=== PATIENT | female | born 1945 | race Caucasian/White ===

== ENCOUNTER 2020-03-11 07:49 | Outpatient (CLI) | payer MEDICARE, SELFPAY ==
--- NOTE | ~2020-03-11 | MM_ITS ---
EXAMINATION: MM screening [facility] BI w leonel HISTORY: Screening mammogram TECHNIQUE: Craniocaudal and mediolateral oblique 3-D tomosynthesis images were obtained and synthetic 2-D images were generated. CAD analysis was submitted and interpreted. COMPARISON: Comparison to multiple prior studies sequentially, with oldest reviewed study dated 12/19. BREAST PARENCHYMAL COMPOSITION: There are scattered areas of fibroglandular density. FINDINGS: There is no evidence of suspicious mass, calcification, or architectural distortion to sugg est malignancy in either breast. There has been no suspicious interval change. IMPRESSION: 1. No mammographic evidence of malignancy. 2. Recommend routine screening mammography in one year. BI-RADS Category 1: Negative Reviewed, dictated and finalized at location A.
--- NOTE | ~2020-03-11 | DEXA_ITS ---
Bone Density Report Name: Kassidy Graves Age: 74 Sex: Female Ethnicity: White Date of : 1945 Indication: postmenopausal; parental hip fracture; height loss; hysterectomy; Referring Provider: Samantha Lopez Study: Bone densitometry was performed. Exam Date: March 11, 2020 Accession number: [id number] Bone Density: Region BMD T-score Z-score Classification AP Spine (L1, L2) 0.992 0.1 2.5 Normal Femoral Neck (Left) 0.656 -1.7 0.4 Osteopenia Total Hip (Left) 0.871 -0.6 1.3 Normal Total Hip Bilateral Avg 0.870 -0.6 1.3 Normal Femoral Neck (Right) 0.721 -1.2 1.0 Osteopenia Total Hip (Right) 0.868 -0.6 1.3 Normal World Health Organization criteria for BMD impression classify patients as: Normal (T-score at or above -1.0), Osteopenia (T-score between -1.0 and -2.5), or Osteoporosis (T-score at or below -2.5). 10-year Fracture Risk(1): Major Osteoporotic Fracture 22% Hip Fracture 12% Reported Risk Factors: [place] (), Neck BMD=0.656, BMI=29.3, parental fracture (1) FRAX(R) Version 3.08. Fracture probability calculated for an untreated patient. Fracture probability may be lower if the patient has received treatment. Previous Exams: Region Exam Age BMD T-score BMD Change BMD Change Date g/cm2 vs Baseline vs Previous AP Spine(L1, L2) 03/11/2020 74 0.992 0.1 0.005(0.5%)# -0.039(-3.8%)* 09/26/2016 71 1.031 0.5 0.044(4.4%)# 0.044(4.4%)# 10/18/2011 66 0.987 0.1 Total Hip(Left) 03/11/2020 74 0.871 -0.6 -0.023(-2.6%)# -0.002(-0.2%) 09/26/2016 71 0.873 -0.6 -0.021(-2.4%)# -0.021(-2.4%)# 10/18/2011 66 0.894 -0.4 Total Hip(Right) 03/11/2020 74 0.868 -0.6 -0.035(-3.8%)# -0.009(-1.0%) 09/26/2016 71 0.876 -0.5 -0.026(-2.9%)# -0.026(-2.9%)# 10/18/2011 66 0.902 -0.3 *Denotes significance at 95% confidence level, LSC for AP Spine = 0.022 g/cm2, LSC for Total Hip = 0.027 g/cm2 Clinical Information Provided by Patient: Parent has had a hip fracture Has the following medical conditions: Hysterectomy Patient maximum height was 63 Menopause Age: 38 No regular weight bearing exercise Drinks caffeinated beverages Onset of menses at age 10 Number of children 1 Impression: The patient has low bone mass, based on the Left Femoral Neck T-score. The patient has an estimated ten-year risk of hip fracture of 12% and an estimated ten-year risk of major fracture of 22%, based on the WHO FRAX algo
== END 2020-03-11 07:50 | disposition home or self-care (01) ==
PROVIDERS: PCP Family Medicine; Visit Provider Family Medicine
DX: Z12.31 Encounter for screening mammogram for malignant neoplasm of breast (principal); Z78.0 Asymptomatic menopausal state; M85.852 Other specified disorders of bone density and structure, left thigh; M85.851 Other specified disorders of bone density and structure, right thigh
CPT/HCPCS: 77063; 77067; 77080

== ENCOUNTER → 2020-11-06 01:12 | Outpatient (CLI) | payer MEDICARE, SELFPAY ==
[2020-11-06 20:38] LABS: SARS-CoV-2 RNA PCR Negative
== END ==
PROVIDERS: PCP Physician Assistant; Visit Provider Internal Medicine Gastroenterology
DX: Z01.812 Encounter for preprocedural laboratory examination (principal); Z20.822 Contact with and (suspected) exposure to COVID-19
CPT/HCPCS: C9803; U0003; U0005

== ENCOUNTER 2020-11-09 02:08 | Day surgery (SDC) | payer MEDICARE, SELFPAY ==
[2020-10-26 14:14] VITALS: BMI 27.1
[2020-11-09 09:46] VITALS: BP 104/57; PULSE 56; RESP 18; TEMP 37.4; O2SAT 98
--- NOTE | 2020-11-09 09:53 | WPDANESEPPF ---
Anes - Initial Pre Proc Eval Procedure: Operation Date: 11/09/20 10:30 Proposed Procedures p Screening Colonoscopy - Enoc Rodrigues MD Date/Time: 11/09/20 09:53 Surgeon: Enoc Rodrigues MD Pre Op Diagnosis: Neoplasm Screening Patient Data Age: 75 Gender: F Height: 5 ft 2 in Weight: 65.7 kg Last Vital Signs Temp 37.4 C 11/09/20 09:46 Pulse 56 L 11/09/20 09:46 Resp 18 11/09/20 09:46 BP 104/57 L 11/09/20 09:46 Pulse Ox 98 11/09/20 09:46 Allergies Allergy/AdvReac Type Severity Reaction Status Date / Time Penicillins Allergy Unknown Unknown Verified 11/09/20 09:27 Home Medications Medication Instructions Recorded Confirmed Type propylene glycol 0.6 % eye drops 1 drop EACH EYE BID-TID PRN #10 ml 02/20/20 10/25/20 Rx diclofenac sodium 75 mg 75 mg PO BID PRN 07/29/20 10/25/20 History tablet,delayed release donepezil 10 mg tablet 10 mg PO ONCE 07/29/20 10/25/20 History simvastatin 10 mg tablet See Rx Instructions .ROUTE 08/30/20 10/25/20 Rx .COMPLEX #90 tablet cholecalciferol (vitamin D3) 25 25 mcg PO DAILY 10/20/20 10/25/20 History mcg (1,000 unit) capsule hydrocortisone 2.5 % topical cream 1 applic [place] BID #30 g 10/20/20 10/25/20 Rx with perineal applicator melatonin 5 mg capsule mg PO DAILY cap 10/20/20 10/25/20 History levothyroxine 50 mcg tablet 50 mcg PO DAILY #90 tablet 10/25/20 Rx sodium,potassium,mag sulfates 17.5 See Rx Instructions PO .COMPLEX 10/25/20 Rx gram-3.13 gram-1.6 gram oral soln #354 ml oxybutynin chloride 5 mg tablet 5 mg PO DAILY #90 tablet 10/27/20 10/27/20 Rx memantine 10 mg tablet 10 mg PO BID #30 tablet 11/08/20 Rx sertraline 100 mg tablet 100 mg PO DAILY #90 tablet 11/08/20 Rx Patient hx anesthesia problems: none Family hx anesthesia problems: none PMFSH Past Medical History Medical History Alzheimer disease 2020 Broken arm MITCH (generalized anxiety disorder) History of blood transfusion Hyperlipidemia Hypothyroidism determined by thyroid function test Memory deficit Migraine Post-menopausal Surgical History Surgical History H/O hysterectomy for benign disease History of appendectomy History of cataract surgery History of tonsillectomy [place] teeth removed Family History Family History Mother Family history of Alzheimer's disease Other Cerebrovascular accident Social History Social History Smoking status: Never smoker Second hand tobacco smoke exposure: No Alcohol intake: current Alcohol use details: rarely Substance use: never Substance use type: does not use Living arrangements: alone Gender identity (if verbalized by the patient): Female Spiritual care concerns: No Agree to blood products: Yes Anes - Eval Final PreProcedure Day of Procedure 11/09/20 09:53 Patient weight: normal Heart: regular rate and rhythm Lungs: clear to auscultation Airway: Mallampati scale class 1 Neurological: alert and oriented Last oral intake: >/= 8 hours ASA classification: III Emergent: no Anesthetic plan: proceed Anesthesia type and monitoring: general GIVS and standard monitoring Informed Consent: The patient's anesthetic plan and its attendant risks and benefits were discussed with the patient/family/POA. Questions were solicited and answers provided to the satisfaction of the patient/family/POA.
[2020-11-09] MEDS: LACTATED RINGERS 1,000 ML 150 ML IV CONT (10:00)
[2020-11-09 11:00] VITALS: BP 103/61; PULSE 48; RESP 17; O2SAT 97
--- NOTE | 2020-11-09 11:13 | PM.HPGS ---
History of Present Illness History of Present Illness Consent: Risks, benefits, and alternatives have been discussed and questions answered. Patient agrees to proceed with procedure. Chief complaint: Neoplasm Screening Narrative: Kassidy Graves is a 75 year old female here for colon screening, last one 2009, also hemorrhoids for which has seen surgery Review of Systems Constitutional: Constitutional: Denies headache(s) and Denies weakness Eyes: Eyes: Denies blurry vision ENT: Reports Normal hearing present, Denies headache(s) and Denies neck pain Cardiovascular: Cardiovascular: Denies chest pain and Denies dyspnea Respiratory: Respiratory: Denies dyspnea Gastrointestinal: Gastrointestinal: Reports no additional gastrointestinal complaints Genitourinary: Genitourinary: Denies dysuria Musculoskeletal: Musculoskeletal: Denies neck pain Integumentary/Breasts: Skin/Breast: Denies dry skin Neurologic: Reports Normal hearing present, Denies headache(s) and Denies weakness Psychiatric: Psychiatric: Denies anxiety Endocrine: Endocrine: Denies change in body appearance Hematologic/Lymphatic: Hematologic/Lymphatic: Denies easy bleeding Allergic/Immunologic: Allergic/Immunologic: Denies urticaria PMFSH Past Medical History Medical History Alzheimer disease 2020 Broken arm MITCH (generalized anxiety disorder) History of blood transfusion Hyperlipidemia Hypothyroidism determined by thyroid function test Memory deficit Migraine Post-menopausal Surgical History Surgical History H/O hysterectomy for benign disease History of appendectomy History of cataract surgery History of tonsillectomy [place] teeth removed Family History Family History Mother Family history of Alzheimer's disease Other Cerebrovascular accident Social History Social History Smoking status: Never smoker Second hand tobacco smoke exposure: No Alcohol intake: current Alcohol use details: rarely Substance use: never Substance use type: does not use Living arrangements: alone Gender identity (if verbalized by the patient): Female Spiritual care concerns: No Agree to blood products: Yes Meds Home Medications and Allergies Home Medications Medication Instructions Recorded Confirmed Type propylene glycol 0.6 % eye drops 1 drop EACH EYE BID-TID PRN #10 ml 02/20/20 11/09/20 Rx diclofenac sodium 75 mg 75 mg PO BID PRN 07/29/20 10/25/20 History tablet,delayed release donepezil 10 mg tablet 10 mg PO ONCE 07/29/20 11/09/20 History simvastatin 10 mg tablet See Rx Instructions .ROUTE 08/30/20 11/09/20 Rx .COMPLEX #90 tablet cholecalciferol (vitamin D3) 25 25 mcg PO DAILY 10/20/20 11/09/20 History mcg (1,000 unit) capsule hydrocortisone 2.5 % topical cream 1 applic [place] BID #30 g 10/20/20 11/09/20 Rx with perineal applicator melatonin 5 mg capsule mg PO DAILY cap 10/20/20 10/25/20 History levothyroxine 50 mcg tablet 50 mcg PO DAILY #90 tablet 10/25/20 11/09/20 Rx sodium,potassium,mag sulfates 17.5 See Rx Instructions PO .COMPLEX 10/25/20 11/09/20 Rx gram-3.13 gram-1.6 gram oral soln #354 ml oxybutynin chloride 5 mg tablet 5 mg PO DAILY #90 tablet 10/27/20 11/09/20 Rx memantine 10 mg tablet 10 mg PO BID #30 tablet 11/08/20 11/09/20 Rx sertraline 100 mg tablet 100 mg PO DAILY #90 tablet 11/08/20 11/09/20 Rx Allergies Allergy/AdvReac Type Severity Reaction Status Date / Time Penicillins Allergy Unknown Unknown Verified 11/09/20 09:27 Vital Signs Vital Signs - 24 hr 11/09/20 09:46 Temperature 99.3 F Pulse Rate 56 L Respiratory Rate 18 Blood Pressure 104/57 L Pulse Oximetry 98 Exam Const: General: comfortable and no acute distress HENMT: General nose exam: Normal nares p
[2020-11-09 11:30] VITALS: BP 103/61; PULSE 48; RESP 17; O2SAT 97
[2020-11-09 11:40] VITALS: BP 108/66; PULSE 47; RESP 20; O2SAT 98
[2020-11-09 11:50] VITALS: BP 113/68; PULSE 54; RESP 18; O2SAT 99
[2020-11-09 12:00] VITALS: BP 110/56; PULSE 67; RESP 18; O2SAT 99
== END 2020-11-09 12:19 | disposition home or self-care (01) ==
PROVIDERS: PCP Physician Assistant; Visit Provider Internal Medicine Gastroenterology
PROC: 0DJD8ZZ Inspection of Lower Intestinal Tract, Via Natural or Artificial Opening Endoscopic (ICD-10-PCS; CPT 45378; principal; 2020-11-09 10:30)
DX: Z12.11 Encounter for screening for malignant neoplasm of colon (principal); D12.2 Benign neoplasm of ascending colon; G30.9 Alzheimer's disease, unspecified; K64.4 Residual hemorrhoidal skin tags; E78.5 Hyperlipidemia, unspecified; E03.9 Hypothyroidism, unspecified; F02.80 Dementia in other diseases classified elsewhere, unspecified severity, without behavioral disturbance, psychotic disturbance, mood disturbance, and anxiety; Z90.710 Acquired absence of both cervix and uterus
CPT/HCPCS: 45385; 88305; C9803; J2704; J7120; U0003; U0005

== ENCOUNTER 2020-11-11 08:13 | Outpatient (CLI) | payer MEDICARE, SELFPAY ==
--- NOTE | 2020-11-11 08:16 | ECG_ITS ---
Measurements Intervals [place] Rate: 55 P: 68 TX: 168 QRS: -15 QRSD: 90 T: 61 QT: 429 QTc: 411 Interpretive Statements SINUS BRADYCARDIA INCOMPLETE RIGHT BUNDLE BRANCH BLOCK BASELINE ARTIFACT- I, II, III, AVR, AVL,A VF BORDERLINE ECG Electronically Signed On 11-11-2020 9:22:32 DEPARTMENT SALES MANAGER by Mayur Weinberg D.O.
== END 2020-11-11 08:14 | disposition home or self-care (01) ==
LOC: ANHSURGERY 08:16
PROVIDERS: PCP Physician Assistant; Visit Provider Surgery
DX: E78.5 Hyperlipidemia, unspecified (principal); Z01.818 Encounter for other preprocedural examination; I45.10 Unspecified right bundle-branch block
CPT/HCPCS: 93005

== ENCOUNTER → 2020-11-13 01:03 | Outpatient (CLI) | payer MEDICARE, SELFPAY ==
[2020-11-13 19:49] LABS: SARS-CoV-2 RNA PCR Negative
== END ==
PROVIDERS: PCP Physician Assistant; Visit Provider Surgery
DX: Z01.812 Encounter for preprocedural laboratory examination (principal); Z20.822 Contact with and (suspected) exposure to COVID-19
CPT/HCPCS: C9803; U0003; U0005

== ENCOUNTER 2020-11-17 01:05 | Day surgery (SDC) | payer MEDICARE, SELFPAY ==
[2020-11-09 14:42] VITALS: BMI 26.6
[2020-11-17] MEDS: LACTATED RINGERS 1,000 ML 30 ML IV CONT (08:28)
[2020-11-17] MEDS: ACETAMINOPHEN 500 MG TABLET 1000 MG PO (08:29)
[2020-11-17] MEDS: KETOROLAC 15 MG/ML VIAL (*BKC) IV PUSH (08:29)
[2020-11-17 09:21] VITALS: BP 115/66; PULSE 71; RESP 16; TEMP 36.6; O2SAT 98
--- NOTE | 2020-11-17 09:56 | WPDANESEPPF ---
Anes - Initial Pre Proc Eval Procedure: Operation Date: 11/17/20 10:00 Proposed Procedures p Proctosigmoidoscopy With Hemorrhoidectomy (Two Complexes) - Usman Hay MD Date/Time: 11/17/20 09:56 Surgeon: Usman Hay MD Pre Op Diagnosis: Internal and External Hemorrhoid w/ Complications Patient Data Age: 75 Gender: F Height: 5 ft 2 in Weight: 64.9 kg Last Vital Signs Temp 98 F 11/17/20 09:21 Pulse 71 11/17/20 09:21 Resp 16 11/17/20 09:21 BP 115/66 11/17/20 09:21 Pulse Ox 98 11/17/20 09:21 Allergies Allergy/AdvReac Type Severity Reaction Status Date / Time Penicillins Allergy Severe Swelling Verified 11/17/20 08:00 of Lip/Tongue/Throat Home Medications Medication Instructions Recorded Confirmed Type propylene glycol 0.6 % eye drops 1 drop EACH EYE BID-TID PRN #10 ml 02/20/20 11/17/20 Rx diclofenac sodium 75 mg 75 mg PO BID PRN 07/29/20 11/09/20 History tablet,delayed release donepezil 10 mg tablet 10 mg PO ONCE 07/29/20 11/17/20 History cholecalciferol (vitamin D3) 25 25 mcg PO DAILY 10/20/20 11/17/20 History mcg (1,000 unit) capsule melatonin 5 mg capsule 5 mg PO HS cap 10/20/20 11/17/20 History oxybutynin chloride 5 mg tablet 5 mg PO DAILY #90 tablet 10/27/20 11/17/20 Rx memantine 10 mg tablet 10 mg PO BID #30 tablet 11/08/20 11/17/20 Rx ascorbic acid (vitamin C) 500 mg PO DAILY 11/09/20 11/17/20 History hydrocortisone [Anusol-HC] 1 applic [place] BID PRN 11/09/20 11/17/20 History levothyroxine 50 mcg PO QAM 11/09/20 11/17/20 History psyllium husk [Metamucil] 1 tbsp PO BID 11/09/20 11/17/20 History sertraline 100 mg PO QAM 11/09/20 11/17/20 History simvastatin 10 mg PO HS 11/09/20 11/17/20 History Patient hx anesthesia problems: none Family hx anesthesia problems: none PMFSH Past Medical History Medical History Alzheimer disease 2020 Broken arm MITCH (generalized anxiety disorder) History of blood transfusion Hyperlipidemia Hypothyroidism determined by thyroid function test Memory deficit Migraine Post-menopausal Surgical History Surgical History H/O hysterectomy for benign disease History of appendectomy History of cataract surgery History of tonsillectomy [place] teeth removed Family History Family History Mother Family history of Alzheimer's disease Other Cerebrovascular accident Social History Social History Smoking status: Never smoker Second hand tobacco smoke exposure: No Alcohol intake: former Alcohol use details: RARELY DRANK ALCOHOL IN PAST Substance use: never Substance use type: does not use Living arrangements: alone Gender identity (if verbalized by the patient): Female Spiritual care concerns: No Agree to blood products: Yes Anes - Eval Final PreProcedure Day of Procedure 11/17/20 09:56 Patient weight: overweight Heart: regular rate and rhythm Lungs: clear to auscultation Airway: Mallampati scale class II Neurological: alert and oriented Last oral intake: >/= 8 hours ASA classification: III Emergent: no Anesthetic plan: proceed Anesthesia type and monitoring: general GIVS and standard monitoring Informed Consent: The patient's anesthetic plan and its attendant risks and benefits were discussed with the patient/family/POA. Questions were solicited and answers provided to the satisfaction of the patient/family/POA.
--- NOTE | 2020-11-17 10:50 | SUR.PREOP ---
Sitting on side of stretcher with no complaints or needs.
--- NOTE | 2020-11-17 10:51 | WPDHPUPDATE1 ---
History and Physical Update Update Date/Time: 11/17/20 10:51 History and Physical has been reviewed, including an updated exam of the patient. There are NO changes in the patient's condition. Risks, benefits, and alternatives have been discussed and questions answered. Patient agrees to proceed with procedure.
[2020-11-17] MEDS: ceFAZolin 2 GM/D5W 50 ML 2 GM/50 ML BAG IVPB (11:05)
[2020-11-17] MEDS: BUPIVACAINE HCL 0.5% PF 30 ML VIAL 10 ML INFILTRATE (11:21)
[2020-11-17 12:04] VITALS: BP 96/58; PULSE 53; RESP 16; O2SAT 97
--- NOTE | 2020-11-17 12:05 | PM.PROC ---
Procedure Note - Detailed Date of procedure: 11/17/20 Pre-op diagnosis: Internal and External Hemorrhoid w/ Complications Prolapsed, bleeding, internal and external hemorrhoids Post-op diagnosis: same Procedure performed: Proctosigmoidoscopy to 15 cm, excision 2 complexes internal and external hemorrhoids Description of procedure: The patient was taken to surgery and IV sedation was administered. She was then turned to prone jacquie-knife position. The buttocks were taped apart. Prep and drape was carried out. Local anesthesia was infiltrated 20 cc deep subdermal and 20 cc intra sphincteric. We then proceeded with proctosigmoidoscopy. This was able to be carried out to 15 cm. No rectal lesions were noted. I then placed a medium Hill-Garcia anoscope. Our attention was taken 1st to the largest hemorrhoid which was in the left lateral position. This internal and external hemorrhoid was then excised primarily with the cautery. It was sent to pathology labeled appropriately. The wound was closed with running locking 4 0 chromic suture. This appeared quite hemostatic and satisfactory. I then went to the patient's right side. Similarly, we placed the medium Hill-Garcia anoscope. A right anterior large complex was attended. It was excised in similar fashion excising both the internal and external hemorrhoid. This wound was also closed with running locking 4 0 chromic suture. I checked for any additional anal canal pathology. There was none. The suture lines were intact and hemostatic. The wound was dressed with Xeroform gauze fluffs and promise panties. The patient was returned to a supine position. She was awakened and taken to outpatient surgery in good condition. Estimated blood loss 30 cc. Sponge and needle counts were correct x2. Anesthesia: MAC and local (0.5% Marcaine with Exparel) Surgeon: Usman Hay MD Stevedore Dock: Cristine RICH Estimated blood loss (mL): 30 Drains: No Packing: No Pathology: yes (Left lateral complex of internal and external hemorrhoids, right anterior complex internal and external hemorrhoids) Complications: None Condition: stable Disposition: same day Findings: Large prolapsed internal and external hemorrhoids at the left lateral and right anterior locations. Proctosigmoidoscopy to 15 cm was negative.
[2020-11-17 12:34] VITALS: BP 108/59; PULSE 51; RESP 16
[2020-11-17 12:57] VITALS: BP 117/54; PULSE 55; RESP 16
== END 2020-11-17 13:10 | disposition home or self-care (01) ==
PROVIDERS: PCP Physician Assistant; Visit Provider Surgery
PROC: (CPT 46260; principal; 2020-11-17 10:00)
DX: K64.8 Other hemorrhoids (principal); K64.4 Residual hemorrhoidal skin tags; K64.5 Perianal venous thrombosis; K62.89 Other specified diseases of anus and rectum; G30.9 Alzheimer's disease, unspecified; F02.80 Dementia in other diseases classified elsewhere, unspecified severity, without behavioral disturbance, psychotic disturbance, mood disturbance, and anxiety; E78.5 Hyperlipidemia, unspecified; E03.9 Hypothyroidism, unspecified; F41.1 Generalized anxiety disorder
CPT/HCPCS: 46260; 88304; 93005; A9270; C9290; C9803; J0690; J1885; J2405; J2704; J3010; J7120; U0003; U0005

== ENCOUNTER 2020-11-18 08:48 | Emergency (ER) | payer MEDICARE, SELFPAY ==
--- NOTE | ~2020-11-18 | CT_ITS ---
EXAMINATION: CT abdomen pelvis w con DATE: 11/18/2020 09:41 INDICATION: Postoperative pelvic pain TECHNIQUE: Computed tomography (CT) of the abdomen and pelvis was performed with 100 cc Omnipaque 350 intravenous contrast. Automated exposure control and iterative reconstruction technique were employe d. Exam dose: 359.29 mGy-cm total exam DLP. COMPARISON: None. FINDINGS: The lung bases are clear of consolidation. Normal heart size. No pericardial or pleural eff usion. There are 2 probable up to 5 mm left hepatic lobe cysts. Focal areas of fatty infiltration near the g allbladder and the fissure for the ligamentum teres. The gallbladder is present. No gallbladder wall thickening or pericholecystic fluid or fat stranding. No bile duct dilatation. No pancreatic mass lesion or calcification. The pancreatic duct measures up to 3.8 mm diameter. Normal splenic size. Normal morphology of the adrenal glands. No renal mass lesion, scarring or urinary tract calculus or hydroureteronephrosis. Normal caliber of the abdominal aorta. No intraperitoneal or retroperitoneal or pelvic mass lesion or adenopathy or ascites. Status post hysterectomy. The urinary bladder is unremarkable. Mild diverticulosis of the left colon; no CT evidence of diverticulitis. No bowel obstruction, bowel wall thickening, pneumatosis or intraperitoneal free air is detected. There is severe degenerative disc disease at L2-3 through L4-5 with associated mild retrolisthesis at L2-3, L3-4. IMPRESSION: Status post hysterectomy Small hepatic cysts Mild diverticulosis of the colon Reviewed, dictated and finalized at Location A. Reviewed, dictated and finalized at location B. [employer]ER[employer]
[2020-11-18 08:59] VITALS: BP 112/60; PULSE 61; RESP 18; TEMP 36.8; O2SAT 100
--- NOTE | 2020-11-18 09:01 | ED.FEMALEGU ---
HPI - Female Genitourinary General Chief complaint: Urogenital-Female Stated complaint: post op pain,unable to void-hemorrhoidectomy yest Time Seen by Provider: 11/18/20 09:00 Source: patient Mode of arrival: wheelchair Limitations: no limitations History of Present Illness HPI Narrative: A 75-year-old female comes into the emergency department with complaints of pain in the inability to urinate. Patient states she recently underwent a hemorrhoidectomy. Patient states that she thinks she urinated last night. She notes that she woke up around 430 this morning was unable to urinate then and was still unable to urinate. She states because of this she has come in now. Patient states that she did take an OxyContin for her pain as prescribed by her surgeon. Related Data Home Medications Medication Instructions Recorded Confirmed diclofenac sodium 75 mg 75 mg PO BID PRN 07/29/20 11/09/20 tablet,delayed release donepezil 10 mg tablet 10 mg PO ONCE 07/29/20 11/17/20 cholecalciferol (vitamin D3) 25 25 mcg PO DAILY 10/20/20 11/17/20 mcg (1,000 unit) capsule melatonin 5 mg capsule 5 mg PO HS cap 10/20/20 11/17/20 Metamucil 1 tbsp PO BID 11/09/20 11/17/20 ascorbic acid (vitamin C) 500 mg PO DAILY 11/09/20 11/17/20 levothyroxine 50 mcg PO QAM 11/09/20 11/17/20 sertraline 100 mg PO QAM 11/09/20 11/17/20 simvastatin 10 mg PO HS 11/09/20 11/17/20 Allergies Allergy/AdvReac Type Severity Reaction Status Date / Time Penicillins Allergy Severe Swelling Verified 11/17/20 08:00 of Lip/Tongue/Throat Review of Systems Review of Systems: Narrative: CONSTITUTIONAL: Denies fever, chills, or sweats. EYES: Denies visual changes, redness, or discharge. ENT: Denies rhinorrhea, congestion, sore throat, or otalgia. CARDIOVASCULAR: Denies chest pain, palpitations, or edema. RESPIRATORY: Denies cough or dyspnea. GASTROINTESTINAL: Denies abdominal pain, nausea, vomiting, or diarrhea. GENITOURINARY: Denies dysuria or hematuria. Endorses anuria SKIN: Denies rash or itching. MUSCULOSKELETAL: Denies back pain, joint pain, or myalgia. NEUROLOGIC: Denies headache, numbness, dizziness, or weakness. PSYCHIATRIC: Denies anxiety or depression. [facility] Past Medical History Medical History Alzheimer disease 2020 Broken arm MITCH (generalized anxiety disorder) History of blood transfusion Hyperlipidemia Hypothyroidism determined by thyroid function test Memory deficit Migraine Post-menopausal Surgical History Surgical History H/O hysterectomy for benign disease History of appendectomy History of cataract surgery History of tonsillectomy [place] teeth removed Family History Family History Mother Family history of Alzheimer's disease Other Cerebrovascular accident Social History Social History Smoking status: Never smoker Second hand tobacco smoke exposure: No Alcohol intake: former Substance use: never Substance use type: does not use Gender identity (if verbalized by the patient): Female Spiritual care concerns: No Agree to blood products: Yes Exam Narrative: Exam Narrative: GENERAL: Well-appearing, well-nourished, and in no acute distress. HEAD: Normocephalic, atraumatic. EYES: PERRLA and EOMI. ENT: Nares clear, no rhinorrhea or epistaxis. Mucous membranes moist. NECK: Supple. No adenopathy or masses. No carotid bruits or JVD CHEST: Clear to auscultation. No respiratory distress. No wheezes rales or rhonchi HEART: Regular rate and rhythm. No murmur heard. Normal peripheral pulses. ABDOMEN: Soft, nontender, nondistended, normal active bowel sounds. TTP over the suprapubic area EXTREMITIES: Normal range of motion. No edema. SKIN: Warm, dry, no rash. NEURO: No focal deficits. Alert and oriented x3.
[2020-11-18 09:16] LABS: Basophils Percent Auto 0.2 % (0.2-1.2); Eosinophils Percent Auto 0.2 % (0-4.4); Hematocrit 33.4 % (37.0-47.0); Hemoglobin 11.1 g/dL (12.0-15.0); Immature Granulocyte Absolute 0.04 K/mm3 (0.00-0.031); Immature Granulocyte Percent A 0.3 % (0-0.5); Lymphocytes Absolute Auto 0.97 K/mm3 (0.9-3.2); Lymphocytes Percent Auto 7.4 % (18.3-44.2); Mean Corpuscular HGB Conc 33.2 g/dl (32-36); Mean Corpuscular Hemoglobin 30.8 pg (26-34); Mean Corpuscular Volume 92.8 fl (80-100); Mean Platelet Volume 9.5 fl (7.4-10.4); Monocytes Absolute Auto 0.9 K/mm3 (0.1-0.6); Monocytes Percent Auto 6.5 % (2.6-8.5); Neutrophils Absolute Auto 11.1 K/mm3 (1.3-6.7); Neutrophils Percent Auto 85.4 % (45.5-73.1); Platelet Count Result 206 k/mm3 (150-375)
[2020-11-18 09:28] LABS: Alanine Aminotransferase 15 U/L (4-35); Albumin Level 3.6 g/dL (3.5-5.1); Alkaline Phosphatase 68 U/L (38-126); Anion Gap 5 mmol/L (8-16); Aspartate Amino Transferase 26 U/L (14-36); Bilirubin,Total 0.8 mg/dL (0.2-1.3); Blood Urea Nitrogen 13 mg/dL (7-17); Calcium 8.2 mg/dL (8.4-10.2); Carbon Dioxide 25 mmol/L (22-30); Chloride 104 mmol/L (98-107); Estimated CRCL calculation 53 ml/min; Estimated Glomerular Filt Rate > 60; Glucose 114 mg/dL (65-105); Potassium 3.9 mmol/L (3.4-5.0); Sodium 134 mmol/L (137-145)
[2020-11-18 11:01] LABS: Add Urine Microscopic? YES; Appearance Urine Clear (Clear); Bilirubin Urine Negative (Negative); Blood Urine Negative (Negative); Color Urine Colorless (Yellow); Glucose Urine UA Negative (Negative); Ketones Urine Negative (Negative); Leukocyte Esterase Ur Trace LEU/UL (Negative); Nitrate Urine Negative (Negative); Protein Urine Negative (Negative); RBC Urine 0-2 /hpf (0-2); Specific Grav Ur 1.021 (1.001-1.035); Squamous Epithelial Cell Urine Rare /hpf (Few); Urobilinogen Urine Negative mg/dL (<2.0)
--- NOTE | 2020-11-18 11:15 | PC.NURSE ---
Patient requested a balderrama cath at this time, this RN explained to patient that she did not need a balderrama due to patient urinating without difficulty in the bathroom. Patient asked why she cant have one, this RN explained the risk for infection and patient was ok with not getting a balderrama at this time. patient has no questions or concerns.
[2020-11-18] MEDS: HYDROcodone/acetaminophen (*CRX) 7.5-325 MG TABLET 1 TAB PO (11:40)
--- NOTE | 2020-11-18 11:40 | PC.NURSE ---
Patient walked to bathroom without difficulty and in no distress, patient requested discharge paperwork after EDP explained test results and follow up.
--- NOTE | 2020-11-18 11:50 | PC.NURSE ---
This RN at bedside for discharge of patient, patient states I dont know anything more than when I got here and I am not happy. EDP at bedside to talk with patient again, patient states I dont have any questions for you.
--- NOTE | 2020-11-18 12:04 | PC.NURSE ---
Patient discharged at this time, patient has no questions or concerns for the EDP ion exchange operator. Patient states She is just not happy right now and wants to go home, she understands her follow up.
[2020-11-18 12:13] VITALS: BP 118/75; PULSE 66; RESP 19; O2SAT 100
== END 2020-11-18 12:14 | disposition home or self-care (01) ==
PROVIDERS: Emergency Provider Emergency Medicine; PCP Physician Assistant
DX: G89.18 Other acute postprocedural pain (principal); R34 Anuria and oliguria; G30.9 Alzheimer's disease, unspecified; F02.80 Dementia in other diseases classified elsewhere, unspecified severity, without behavioral disturbance, psychotic disturbance, mood disturbance, and anxiety; F41.9 Anxiety disorder, unspecified; E78.5 Hyperlipidemia, unspecified; E03.9 Hypothyroidism, unspecified
CPT/HCPCS: 36415; 74177; 80053; 81001; 85025; 87086; 99284; A9270; Q9967

== ENCOUNTER 2021-05-06 08:57 | Outpatient (CLI) | payer MEDICARE, SELFPAY ==
--- NOTE | ~2021-05-06 | MM_ITS ---
EXAMINATION: MM screening [facility] BI w leonel HISTORY: Screening TECHNIQUE: Craniocaudal and mediolateral oblique 3-D tomosynthesis images were obtained and synthetic 2-D images were generated. CAD analysis was submitted and interpreted. COMPARISON: Comparison to multiple prior studies sequentially, with oldest reviewed study dated 12/19. BREAST PARENCHYMAL COMPOSITION: There are scattered areas of fibroglandular density. FINDINGS: There is no evidence of suspicious mass, calcification, or architectural distortion to sugg est malignancy in either breast. There has been no suspicious interval change. IMPRESSION: 1. No mammographic evidence of malignancy. 2. Recommend routine screening mammography in one year. BI-RADS Category 1: Negative Reviewed, dictated and finalized at location A.
== END 2021-05-06 08:58 | disposition home or self-care (01) ==
PROVIDERS: PCP Family Medicine; Visit Provider Family Medicine
DX: Z12.31 Encounter for screening mammogram for malignant neoplasm of breast (principal)
CPT/HCPCS: 77063; 77067

== ENCOUNTER → 2021-06-07 09:09 | Outpatient (CLI) | payer MEDICARE, SELFPAY ==
[2021-06-07 19:52] LABS: SARS-CoV-2 RNA PCR Negative
== END ==
PROVIDERS: PCP Family Medicine; Visit Provider Family Medicine
DX: R05 Cough (principal); Z20.822 Contact with and (suspected) exposure to COVID-19
CPT/HCPCS: C9803; U0003; U0005

== ENCOUNTER 2021-08-12 13:28 | Emergency (ER) | payer MEDICARE, SELFPAY ==
--- NOTE | ~2021-08-12 | XR_ITS ---
EXAMINATION: XR ankle LT min 3V DATE: 08/12/2021 13:49 INDICATION: Left ankle pain, initial encounter TECHNIQUE: Anteroposterior, lateral, mortise, and additional oblique view of the ankle were obtained. COMPARISON: None. FINDINGS: There is an acute, traumatic, closed, oblique fracture of the distal fibula which ends at t he level of the tibial plafond. There is approximately one cortical width of lateral displacement of the distal fracture fragment. Alignment at the tibiotalar joint is normal. Ankle soft tissue swelling is present. No additional acute osseous findings are evident. There is a plantar calcaneal enthesoph yte. IMPRESSION: 1. Oblique shaft fracture of the distal fibula. Reviewed, dictated and finalized at location B. ROOM SUPERVISOR
--- NOTE | 2021-08-12 13:32 | ED.LOWEXIN ---
HPI - Extremity Injury (Lower) General Chief Complaint: Extremity Injury, Lower Stated Complaint: INJURED L ANKLE Time Seen by Provider: 08/12/21 13:32 Source: patient, family and RN notes reviewed History of Present Illness HPI Narrative: Patient is a 76-year-old female who presents the urgent care with her daughter with complaints of a left ankle injury. Patient states that earlier this morning she was in the garden outside and twisted on some landscaping rocks. Patient states that she heard a pop . Patient has iced and elevated the foot. Patient states that pain increases with any weightbearing or flexion of the ankle. No other acute complaints or injuries. No acute distress noted. Patient and daughter aware of the plan of care. Some parts of this dictation were generated by voice recognition software and may contain typographical and/or grammatical inaccuracies. Related Data Home Medications Medication Instructions Recorded Confirmed diclofenac sodium 75 mg 75 mg PO BID PRN 07/29/20 03/07/21 tablet,delayed release donepezil 10 mg tablet 10 mg PO ONCE 07/29/20 03/07/21 cholecalciferol (vitamin D3) 25 25 mcg PO DAILY 10/20/20 03/07/21 mcg (1,000 unit) capsule melatonin 5 mg capsule 5 mg PO HS cap 10/20/20 03/07/21 Metamucil 1 tbsp PO BID 11/09/20 03/07/21 ascorbic acid (vitamin C) 500 mg PO DAILY 11/09/20 03/07/21 ibuprofen 800 mg tablet 800 mg PO Q6H 01/10/21 03/07/21 Allergies Allergy/AdvReac Type Severity Reaction Status Date / Time Penicillins Allergy Severe Swelling Verified 04/08/21 15:23 of Lip/Tongue/Throat Review of Systems Review of Systems: CONSTITUTIONAL: Denies fever, chills, or sweats. EYES: Denies visual changes, redness, or discharge. ENT: Denies rhinorrhea, congestion, sore throat, or otalgia. CARDIOVASCULAR: Denies chest pain, palpitations, or edema. RESPIRATORY: Denies cough or dyspnea. GASTROINTESTINAL: Denies abdominal pain, nausea, vomiting, or diarrhea. GENITOURINARY: Denies dysuria or hematuria. SKIN: Denies rash or itching. MUSCULOSKELETAL: Reports of left ankle pain, bruising and swelling NEUROLOGIC: Denies headache, numbness, or weakness. All other systems reviewed are negative, except as documented in HPI. [facility] Past Medical History Medical History (Updated 08/12/21 @ 14:10 by CHELY Kan) Alzheimer disease 2020 Breast cancer screening by mammogram mammogram 05/06/2021 normal, recheck in 1 year Broken arm MITCH (generalized anxiety disorder) History of blood transfusion Hyperlipidemia Hypothyroidism determined by thyroid function test Memory deficit Migraine Post-menopausal Surgical History Surgical History H/O hysterectomy for benign disease H/O sigmoidoscopy Proctosigmoidoscopy to 15 cm, excision 2 complexes internal and external hemorrhoids History of appendectomy History of cataract surgery History of tonsillectomy [place] teeth removed Family History Family History Mother Family history of Alzheimer's disease Other Cerebrovascular accident Social History Social History Second hand tobacco smoke exposure: No Alcohol intake: former Alcohol use details: RARELY DRANK ALCOHOL IN PAST Substance use: never Substance use type: does not use Gender identity (if verbalized by the patient): Female Spiritual care concerns: No Agree to blood products: Yes Comments At the time of my signature, I reviewed and agree with the nursing past medical, surgical, social, and family history. There is no relevant family history pertinent to the patient complaint. Exam Narrative: GENERAL: This is a well-nourished, well-developed patient, in no apparent distress. HEAD: normocephalic, atraumatic. EYES: PERRL. Sclera clear/white. Vision is grossly in
[2021-08-12 13:38] VITALS: BP 97/80; PULSE 98; RESP 18; TEMP 37.1; O2SAT 98
== END 2021-08-12 14:33 | disposition home or self-care (01) ==
PROVIDERS: Emergency Provider Nurse Practitioner Family
DX: S82.832A Other fracture of upper and lower end of left fibula, initial encounter for closed fracture (principal); X50.9XXA Other and unspecified overexertion or strenuous movements or postures, initial encounter; G30.9 Alzheimer's disease, unspecified; F02.80 Dementia in other diseases classified elsewhere, unspecified severity, without behavioral disturbance, psychotic disturbance, mood disturbance, and anxiety; E78.5 Hyperlipidemia, unspecified; E03.9 Hypothyroidism, unspecified
CPT/HCPCS: 29515; 73610; 99214; G0463

== ENCOUNTER 2024-03-28 12:41 | Outpatient (CLI) | payer MEDICARE, SELFPAY ==
[2024-03-28 13:16] LABS: Basophils Percent Auto 0.5 % (0.2-1.2); Eosinophils Absolute Auto 0.1 K/mm3 (0-0.3); Eosinophils Percent Auto 0.9 % (0-4.4); Hematocrit 42.3 % (37.0-47.0); Hemoglobin 13.8 g/dL (12.0-15.0); Immature Granulocyte Absolute 0.02 K/mm3 (0.00-0.031); Immature Granulocyte Percent A 0.2 % (0-0.5); Lymphocytes Percent Auto 18.7 % (18.3-44.2); Mean Corpuscular HGB Conc 32.6 g/dl (32-36); Mean Corpuscular Hemoglobin 30.9 pg (26-34); Mean Corpuscular Volume 94.6 fl (80-100); Mean Platelet Volume 9.3 fl (7.4-10.4); Monocytes Absolute Auto 0.6 K/mm3 (0.1-0.6); Monocytes Percent Auto 6.8 % (2.6-8.5); Neutrophils Absolute Auto 5.9 K/mm3 (1.3-6.7); Neutrophils Percent Auto 72.9 % (45.5-73.1); Platelet Count Result 266 k/mm3 (150-375); Red Blood Count 4.47 M/mm3 (4.2-5.4)
[2024-03-28 13:26] LABS: Alanine Aminotransferase 17 U/L (6-35); Albumin Level 4.6 g/dL (3.5-5.1); Alkaline Phosphatase 81 U/L (38-126); Anion Gap 6 mmol/L (4-12); Aspartate Amino Transferase 25 U/L (14-36); Bilirubin,Total 0.9 mg/dL (0.2-1.3); Blood Urea Nitrogen 18 mg/dL (7-17); Calcium 9.6 mg/dL (8.4-10.2); Carbon Dioxide 27 mmol/L (22-30); Chloride 109 mmol/L (98-107); Estimated Glomerular Filt Rate > 60; Glucose 94 mg/dL (65-110); Potassium 4.1 mmol/L (3.4-5.0); Sodium 142 mmol/L (137-145)
[2024-03-28 13:35] LABS: Hemoglobin A1C 5.3 % (<5.7)
[2024-03-28 13:35] LABS: Appearance Urine Cloudy (Clear); Bacteria Urine None Seen /hpf; Bilirubin Urine Negative (Negative); Blood Urine Negative (Negative); Calcium Oxalate Crystals Urine Present /hpf; Color Urine Yellow (Yellow); Glucose Urine UA Negative (Negative); Ketones Urine Negative (Negative); Leukocyte Esterase Ur 1+ LEU/UL (Negative); Need Manual Microscopic Reviewed; Nitrate Urine Negative (Negative); Protein Urine Negative (Negative); Specific Grav Ur 1.025 (1.001-1.035); Squamous Epithelial Cell Urine Occasional /hpf (Few); Urobilinogen Urine 0.2 mg/dL (<2.0); pH Urine 5.5 (5.0-9.0)
[2024-03-28 13:37] LABS: Add Urine Microscopic? YES
[2024-03-28 13:49] LABS: Free T4 Free Thyroxine 1.09 ng/mL (0.78-2.19); Vitamin D 25 Hydroxy 30.4 ng/mL
[2024-03-28 14:47] LABS: Folic Acid > 20.0 ng/mL (2.76->20); Vitamin B12 > 1000.0 pg/mL (239-931)
== END 2024-03-28 12:42 | disposition home or self-care (01) ==
LOC: ANHLAB 12:42
PROVIDERS: PCP Family Medicine; Visit Provider Internal Medicine
DX: E03.9 Hypothyroidism, unspecified (principal); R94.6 Abnormal results of thyroid function studies; E55.9 Vitamin D deficiency, unspecified; E53.8 Deficiency of other specified B group vitamins; Z13.1 Encounter for screening for diabetes mellitus; Z79.899 Other long term (current) drug therapy
CPT/HCPCS: 36415; 80053; 81001; 82306; 82607; 82746; 83036; 84439; 84443; 85025; 87077; 87086; 87088

== ENCOUNTER 2025-01-19 10:28 | Outpatient (CLI) | payer MEDICARE, SELFPAY ==
[2025-01-19 10:50] LABS: Basophils Percent Auto 0.4 % (0.2-1.2); Eosinophils Absolute Auto 0.1 K/mm3 (0-0.3); Eosinophils Percent Auto 0.7 % (0-4.4); Hematocrit 41.9 % (37.0-47.0); Hemoglobin 13.7 g/dL (12.0-15.0); Immature Granulocyte Absolute 0.03 K/mm3 (0.00-0.031); Immature Granulocyte Percent A 0.4 % (0-0.5); Lymphocytes Absolute Auto 1.77 K/mm3 (0.9-3.2); Mean Corpuscular HGB Conc 32.7 g/dl (32-36); Mean Corpuscular Volume 91.7 fl (80-100); Mean Platelet Volume 9.2 fl (7.4-10.4); Monocytes Absolute Auto 0.6 K/mm3 (0.1-0.6); Monocytes Percent Auto 6.7 % (2.6-8.5); Neutrophils Percent Auto 70.8 % (45.5-73.1); Platelet Count Result 295 k/mm3 (150-375); Red Blood Count 4.57 M/mm3 (4.2-5.4); Red Cell Distribution Width 12.4 % (11.5-14.5); White Blood Count 8.4 K/mm3 (4.5-10.0)
[2025-01-19 10:53] LABS: Add Urine Microscopic? YES; Appearance Urine Clear (Clear); Bacteria Urine None Seen /hpf; Bilirubin Urine Negative (Negative); Blood Urine Negative (Negative); Color Urine Yellow (Yellow); Glucose Urine UA Negative (Negative); Ketones Urine Negative (Negative); Leukocyte Esterase Ur 2+ LEU/UL (Negative); Nitrate Urine Negative (Negative); Non Pathogenic Casts 0-2; Protein Urine Trace mg/dL (Negative); RBC Urine 0-2 /hpf (0-2); Specific Grav Ur 1.029 (1.001-1.035); Squamous Epithelial Cell Urine Few /hpf (Few); WBC Urine 21-50 /hpf (0-3); pH Urine 5.5 (5.0-9.0)
[2025-01-19 10:58] LABS: Hemoglobin A1C 5.7 % (<5.7)
[2025-01-19 11:14] LABS: Alanine Aminotransferase 19 U/L (6-35); Albumin Level 4.5 g/dL (3.5-5.1); Alkaline Phosphatase 85 U/L (38-126); Anion Gap 10 mmol/L (4-12); Aspartate Amino Transferase 22 U/L (14-36); Bilirubin,Total 1.1 mg/dL (0.2-1.3); Blood Urea Nitrogen 20 mg/dL (7-17); Calcium 9.5 mg/dL (8.4-10.2); Carbon Dioxide 25 mmol/L (22-30); Chloride 106 mmol/L (98-107); Cholesterol 246 mg/dL (0-200); Estimated Glomerular Filt Rate > 60; Glucose 99 mg/dL (65-110); HDL Direct 110 mg/dL; LDL Cholesterol Direct 90 mg/dL; Potassium 4.2 mmol/L (3.4-5.0); Sodium 141 mmol/L (137-145); Triglycerides 113 mg/dL (<150)
[2025-01-19 11:18] LABS: Free T4 Free Thyroxine 0.94 ng/dL (0.78-2.19); Vitamin D 25 Hydroxy 44.6 ng/mL
[2025-01-19 12:09] LABS: Folic Acid > 20.0 ng/mL (2.76->20)
== END 2025-01-19 10:29 | disposition home or self-care (01) ==
LOC: ANHLAB 10:29
PROVIDERS: PCP Internal Medicine; Visit Provider Internal Medicine
DX: E03.9 Hypothyroidism, unspecified (principal); E78.2 Mixed hyperlipidemia; E55.9 Vitamin D deficiency, unspecified; R94.6 Abnormal results of thyroid function studies; E53.8 Deficiency of other specified B group vitamins; Z79.899 Other long term (current) drug therapy; Z13.1 Encounter for screening for diabetes mellitus
CPT/HCPCS: 36415; 80053; 80061; 81001; 82306; 82607; 82746; 83036; 84439; 84443; 85025; 87086

== ENCOUNTER 2025-01-29 08:01 | Outpatient (CLI) | payer MEDICARE, SELFPAY ==
--- NOTE | ~2025-01-29 | MR_ITS ---
MRI of the brain Clinical History: Amnesia Technique: Axial and sagittal T1-weighted images were acquired. These were followed by axial T2-weigh josé, diffusion weighted, gradient, and FLAIR images. Following intravenous administration of 13 cc Mu ltiHance gadolinium, T1-weighted fat-sat imaging was performed in the axial and coronal planes. Findings: There is no acute infarct, intracranial hemorrhage, or mass lesion. There are mild chronic white matter changes in the periventricular white matter bilaterally. Ventricles and some arachnoid spaces are mildly dilated. Orbits are unremarkable. Paranasal sinuses a nd mastoid air cells are clear. Major intracranial flow voids are intact. Sagittal midline structures are intact. No abnormal postcontrast enhancement identified. IMPRESSION: No acute infarct, intracranial hemorrhage, or mass lesion. Mild chronic white matter changes and mild generalized atrophy. Reviewed, dictated and finalized at [facility].
== END 2025-01-29 08:02 | disposition home or self-care (01) ==
LOC: MICIMG 08:02
PROVIDERS: PCP Internal Medicine; Visit Provider Internal Medicine
DX: R41.3 Other amnesia (principal); F02.818 Dementia in other diseases classified elsewhere, unspecified severity, with other behavioral disturbance; G30.1 Alzheimer's disease with late onset; R41.89 Other symptoms and signs involving cognitive functions and awareness; R90.82 White matter disease, unspecified; G31.9 Degenerative disease of nervous system, unspecified; W19.XXXA Unspecified fall, initial encounter
CPT/HCPCS: 70553; A9577

== ENCOUNTER 2025-09-21 11:17 | Emergency (ER) | payer MEDICARE, SELFPAY ==
--- NOTE | ~2025-09-21 | CT_ITS ---
CT HEAD NON-CONTRAST CT C-SPINE Clinical History: FALL HIT RT SIDE OF HEAD Comparison: MR brain 01/29/2025 Technique: Unenhanced axial images skull base to vertex. Coronal, sagittal reformats. Axial images thoracic inlet to skull base. Sagittal and coronal reformats. CT images acquired with automatic exposure control for dose reduction DLP: 605 mGy-cm Findings: Head: Mild age-related atrophy. Chronic white matter microvascular ischemic changes. Sulci, ventricles: Unremarkable. No intracerebral hemorrhage. No evidence acute territorial infarct. No mass effect, midline shift, intra-/extra-axial fluid collection. Bony calvarium intact. Visualized paranasal sinuses: Clear. Mastoid air cells: Clear. Contusion right parietal scalp. C-spine: No acute fracture. Congenital nonfusion posterior arch C1. Grade 1 anterolisthesis C2 on 3, C3 on 4. Straightening of normal cervical lordosis. Moderate degenerative changes. Prevertebral soft tissues within normal limits. Visualized lung apices: Clear. Visualized thyroid: Unremarkable. No enlarged cervical nodes. IMPRESSION: HEAD: 1. No acute intracranial findings. C-SPINE: 1. No acute fracture. Reviewed, dictated and finalized at location R. EY DOCTOR IMPRESSION: HEAD: 1. No acute intracranial findings. C-SPINE: 1. No acute fracture.
[2025-09-21 11:17] VITALS: BP 108/73; PULSE 54; RESP 16; TEMP 36.9; O2SAT 100
--- NOTE | 2025-09-21 13:00 | ED.GENADULT ---
HPI - General Adult General Chief complaint: Fall Stated complaint: fall Time Seen by Provider: 09/21/25 11:39 History of Present Illness HPI narrative: 80-year-old female presents to the emergency department for evaluation after having a head injury. Patient does have dementia at baseline. Patient does not recall the fall. Fall was witnessed on camera. Upon arrival emergency department patient is at her typical baseline per family. Patient denies any pain or complaint. Related Data Allergies Allergy/AdvReac Type Severity Reaction Status Date / Time Penicillins Allergy Severe Swelling Verified 03/20/25 11:15 of Lip/Tongue/Throat Review of Systems Review of Systems: All systems reviewed & are unremarkable except as noted in HPI and below PMFSH Past Medical History Medical History Anxiety Cognitive changes Hearing loss On halfway drug therapy BMI 26.0-26.9,adult Encounter to establish care Overactive bladder Lesion of tongue Abnormal mini-mental status exam Breast cancer screening by mammogram mammogram 05/06/2021 normal, recheck in 1 year Migraine History of blood transfusion Alzheimer disease 2020 Post-menopausal MITCH (generalized anxiety disorder) Hypothyroidism determined by thyroid function test Hyperlipidemia Memory deficit Broken arm Surgical History Surgical History H/O sigmoidoscopy Proctosigmoidoscopy to 15 cm, excision 2 complexes internal and external hemorrhoids History of cataract surgery H/O hysterectomy for benign disease [place] teeth removed History of appendectomy History of tonsillectomy Family History Family History Mother Family history of Alzheimer's disease Other Cerebrovascular accident Social History Social History Smoking status: Never smoker Second hand tobacco smoke exposure: No Alcohol intake: former Alcohol use details: RARELY DRANK ALCOHOL IN PAST Substance use: never Substance use type: does not use Lack of Transportation: No Lack of Food: Never True Current Housing: I Have Housing Concerned About Future Housing: No Difficulty Paying Gas/Electric Bills: No Difficulty Paying for Meds: No Currently Unemployed: No Education: Bachelor's Degree Difficulty w/ Childcare or Family Care: No Living arrangements: alone Occupation/Education: retired Gender identity (if verbalized by the patient): Female Spiritual care concerns: No Agree to blood products: Yes Exam Narrative: APPEARANCE: Well appearing, no pain, no distress, well-nourished. HEAD: normocephalic, atraumatic. EYES: PERRLA/EOMI, conjunctivae clear. NOSE: Normal no drainage EARS:TMS clear with good light reflex. THROAT: Pharynx clear, no exudate. NECK: Supple. No adenopathy, no masses. RESPIRATORY: Airway patent, respirations nonlabored. Clear to auscultation bilaterally, no rales, rhonchi, wheezing. CARDIOVASCULAR: Regular rate and rhythm without murmurs rubs or gallops. ABDOMINAL: Soft, nontender, nondistended, normal bowel sounds MUSCULOSKELETAL: Moves all extremities. Strength/ROM intact, No edema, No calf tenderness. NEURO: Alert. Cranial nerves II through XII intact. Good gait. Good coordination SKIN: Warm, dry. Normal Color Course Vital Signs Vital signs: Vital Signs Temperature 98.5 F 09/21/25 11:17 Pulse Rate 54 L 09/21/25 11:17 Respiratory Rate 16 09/21/25 11:17 Blood Pressure 108/73 09/21/25 11:17 Pulse Oximetry 100 09/21/25 11:17 Oxygen Delivery Room Air 09/21/25 11:17 Temperature 98.5 F 09/21/25 11:17 Pulse Rate 54 L 09/21/25 11:17 Respiratory Rate 16 09/21/25 11:17 Blood Pressure 108/73 09/21/25 11:17 Pulse Oximetry 100 09/21/25 11:17 Oxygen Delivery Room Air 09/21/25 11:17 [facility] Narrative Medical decision making narrative: 80-year-old female present to emergency department for evaluation after having a ground level fall. Head cervical spine CT were negative. Patient is able to ambulate at baseline. Patient family were updated on the results of workup. Everyone was comfortable with plan for discharge back to the patient's care facility. All questions concerns were addressed. Differential Diagnosis Differential Diagnosis: subdural hematoma, subarachnoid hemorrhage, cervical spine fracture, contusion, concussion Imaging Data Radiologist's impression: ITS Impressions Cervical Spine CT 09/21/25 12:01 IMPRESSION: HEAD: 1. No acute intracranial findings. C-SPINE: 1. No acute fracture. Head CT 09/21/25 12:01 IMPRESSION: HEAD: 1. No acute intracranial findings. C-SPINE: 1. No acute fracture. Discharge Plan Discharge Clinical Impression: Head injury [facility] Condition: Stable Instructions: Antibiotic Form, Head Injury (ED) Additional Instructions: Have close follow-up with your primary care physician. If you have any worsening symptoms please call or return to the emergency department. Patient Language: Portuguese Prescriptions: No Action sertraline 100 mg tablet 100 mg PO DAILY Qty: 90 3RF Rx Instructions: 100 mg orally daily; levothyroxine [Synthroid] 75 mcg tablet 75 mcg PO DAILY Qty: 90 0RF donepezil 10 mg tablet 10 mg PO ONCE Qty: 90 0RF memantine [Namenda] 10 mg tablet 10 mg PO BID Qty: 180 1RF Rx Instructions: TAKE 1 TABLET BY MOUTH TWO TIMES DAILY cholecalciferol (vitamin D3) 50 mcg (2,000 unit) capsule 50 mcg PO DAILY Qty: 90 0RF atorvastatin [Lipitor] 10 mg tablet 10 mg PO DAILY Qty: 90 1RF Rx Instructions: Please D/C the Simvastatin. Thank you buspirone 10 mg tablet 10 mg PO BID Qty: 180 1RF Follow-up/Referrals: UNKNOWN,DOCTOR [Primary Care Provider]
--- NOTE | 2025-09-21 13:28 | PC.NURSE ---
pt able to ambulate with minimal assistance of direction
== END 2025-09-21 13:41 ==
PROVIDERS: Emergency Provider Emergency Medicine
DX: S09.90XA Unspecified injury of head, initial encounter (principal); G30.9 Alzheimer's disease, unspecified; F02.80 Dementia in other diseases classified elsewhere, unspecified severity, without behavioral disturbance, psychotic disturbance, mood disturbance, and anxiety; E03.9 Hypothyroidism, unspecified; E78.5 Hyperlipidemia, unspecified; W19.XXXA Unspecified fall, initial encounter
CPT/HCPCS: 70450; 72125; 99284